=== PATIENT | male | born 1990 ===

== ENCOUNTER 2017-06-15 02:32 | Emergency (ER) | payer BC ==
[2017-06-15] MEDS: IPRATROPIUM (NEB) 0.5 MG/2.5 ML AMP INH (04:05)
[2017-06-15] MEDS: ALBUTEROL 0.5% (NEB) 2.5 MG/0.5 ML AMP INH (04:05)
[2017-06-15] MEDS: predniSONE 20 MG TAB PO (04:13)
== END 2017-06-15 05:42 | disposition home or self-care (01) ==
LOC: E/R 02:32
DX: J20.9 Acute bronchitis, unspecified (principal); J45.901 Unspecified asthma with (acute) exacerbation
CPT/HCPCS: 71045; 94644; 99284-25